=== PATIENT | female | born 1985 | race African-American/Black ===

== ENCOUNTER 2021-03-07 11:32 | Inpatient (IN) ==
[2021-03-07] MEDS ORDERED: SODIUM CHLORIDE 0.9% 1,000 ML IV STA (14:40)
[2021-03-07] MEDS ORDERED: PIPERACILLIN/TAZOBACTAM 3,375 MG in SODIUM CHLORIDE 0.9% 100 ML IV STA (14:40)
[2021-03-07] MEDS ORDERED: PANTOPRAZOLE 40 MG VIAL IV STA (14:40)
[2021-03-07 15:42] LABS: Basophils % 0.2 % (0.0-0.8); Eosinophils % 0.1 % (0.00-10.9); Hematocrit 29.4 VOL% (35.7-47.0); Hemoglobin 8.7 GM/DL (12.0-16.0); Immature Granulocytes % 0.9 %; Immature Granulocytes Absolute 0.15 #; Lymphocytes # 1.6 10*3/uL (1.4-4.0); Lymphocytes % 9.3 % (21.3-54.2); Mean Corpuscular HGB Conc 29.6 GM/DL (32-36); Mean Corpuscular Volume 87.2 FL (87-102); Mean Platelet Volume 12.5 FL (9.6-12.0); Monocytes % 6.5 % (1.7-12.7); Platelet Count 305 T/CUMM (130-400); Red Blood Count 3.37 MC/CUMM (3.8-5.5); Red Cell Distribution Width 14.8 % (9.3-17.3); White Blood Count 16.7 T/CUMM (4-12)
[2021-03-07] MEDS ORDERED: VANCOMYCIN INJ 1,000 MG in SODIUM CHLORIDE 0.9% 250 ML IV STA (15:53)
[2021-03-07 16:07] LABS: Alanine Aminotransferase 18 U/L (13-56); Albumin 2.5 G/DL (3.4-5.0); Alkaline Phosphatase 186 U/L (45-117); Aspartate Amino Transferase 17 U/L (0-37); Bilirubin,Total < 0.39 MG/DL (0.2-1.0); Blood Urea Nitrogen 6 MG/DL (7-18); Calcium 9.4 MG/DL (8.5-10.1); Carbon Dioxide 28 MMOL/L (21-32); Estimated Glom Filtration Rate 136 ML/MIN; Glucose 165 MG/DL (74-106); Osmolality,Calculated 271.1 MOS/KG (273-304); Potassium 4.1 MMOL/L (3.5-5.1); Sodium 135 MMOL/L (136-145); Total Protein 8.9 G/DL (6.4-8.2)
[2021-03-07] MEDS ORDERED: ACETAMINOPHEN 325 MG TABLET PO PRN (16:08)
[2021-03-07] MEDS ORDERED: ALBUTEROL/IPRATROPIUM 3 ML NEB RESP TX PRN (16:08)
[2021-03-07] MEDS ORDERED: BISACODYL 5 MG TABLET PO PRN (16:08)
[2021-03-07] MEDS ORDERED: GLUCAGON 1 MG VIAL IM PRN ×2 (16:10→19:55)
[2021-03-07] MEDS ORDERED: DEXTROSE 50% 25 GM/50 ML VIAL IV PRN ×2 (16:10→19:55)
[2021-03-07] MEDS ORDERED: VANCOMYCIN 1,000 MG VIAL ONE (16:15)
[2021-03-07] MEDS ORDERED: VANCOMYCIN INJ 1,000 MG in SODIUM CHLORIDE 0.9% 250 ML IV SCH (16:30)
[2021-03-07] MEDS ORDERED: ONDANSETRON 4 MG/2 ML VIAL ONE (16:43)
[2021-03-07] MEDS ORDERED: LIDOCAINE 2% 5 ML VIAL ONE (16:43)
[2021-03-07] MEDS ORDERED: SUCCINYLCHOLINE 200 MG/10 ML VIAL ONE (16:43)
[2021-03-07] MEDS ORDERED: propofoL 200 MG/20 ML VIAL IV ONE (16:43)
[2021-03-07] MEDS ORDERED: DEXMEDETOMIDINE 200 MCG/2 ML VIAL ONE (16:43)
[2021-03-07] MEDS ORDERED: PHENYLEPHRINE 1 MG/10 ML SYRINGE IV ONE (17:20)
[2021-03-07] MEDS ORDERED: SEVOFLURANE 1 UNIT/15 MINUTE INH ONE (17:39)
[2021-03-08] MEDS: PIPERACILLIN/TAZOBACTAM 3,375 MG in SODIUM CHLORIDE 0.9% 100 ML IV SCH ×4 (00:03→18:32)
[2021-03-08] MEDS: LACTATED RINGERS 1,000 ML IV SCH (00:03)
[2021-03-08] MEDS: INSULIN LISPRO 100 UNIT/ML SUBCUT SCH ×4 (03:31→17:10)
[2021-03-08] MEDS: VANCOMYCIN INJ 1,000 MG in SODIUM CHLORIDE 0.9% 250 ML IV SCH ×2 (04:28→17:10)
[2021-03-08 05:45] LABS: Basophils % 0.1 % (0.0-0.8); Eosinophils % 0.2 % (0.00-10.9); Hematocrit 23.4 VOL% (35.7-47.0); Hemoglobin 7.1 GM/DL (12.0-16.0); Immature Granulocytes % 0.8 %; Immature Granulocytes Absolute 0.09 #; Lymphocytes # 1.4 10*3/uL (1.4-4.0); Lymphocytes % 12.7 % (21.3-54.2); Mean Corpuscular HGB Conc 30.3 GM/DL (32-36); Mean Corpuscular Volume 86.3 FL (87-102); Mean Platelet Volume 10.5 FL (9.6-12.0); Monocytes % 7.1 % (1.7-12.7); Neutrophils % 79.1 % (38.7-73.9); Platelet Count 319 T/CUMM (130-400); Red Blood Count 2.71 MC/CUMM (3.8-5.5); White Blood Count 10.8 T/CUMM (4-12)
[2021-03-08 05:59] LABS: Calcium 8.4 MG/DL (8.5-10.1); Osmolality,Calculated 285.7 MOS/KG (273-304); Potassium 4.1 MMOL/L (3.5-5.1)
[2021-03-08] MEDS: PANTOPRAZOLE 40 MG TABLET PO SCH (08:24)
[2021-03-08] MEDS: lisinopriL 10 MG TABLET PO SCH (11:17)
[2021-03-08] MEDS: HYDROmorphone 2 MG/1 ML VIAL IV PRN ×2 (13:13→22:53)
[2021-03-08] MEDS: SODIUM HYPOCHLORITE 0.25% IRRIG 473 ML BOTTLE TOP SCH (13:30)
[2021-03-09] MEDS: PIPERACILLIN/TAZOBACTAM 3,375 MG in SODIUM CHLORIDE 0.9% 100 ML IV SCH ×4 (00:37→18:03)
[2021-03-09] MEDS: LACTATED RINGERS 1,000 ML IV SCH ×2 (00:38→22:50)
[2021-03-09] MEDS: VANCOMYCIN INJ 1,000 MG in SODIUM CHLORIDE 0.9% 250 ML IV SCH ×2 (04:12→16:28)
[2021-03-09] MEDS: ONDANSETRON 4 MG/2 ML VIAL IV PRN ×2 (04:26→18:09)
[2021-03-09 04:54] LABS: Basophils % 0.2 % (0.0-0.8); Eosinophils # 0.1 10*3/uL (0.0-0.87); Eosinophils % 0.5 % (0.00-10.9); Hematocrit 26.2 VOL% (35.7-47.0); Hemoglobin 7.8 GM/DL (12.0-16.0); Immature Granulocytes % 0.7 %; Immature Granulocytes Absolute 0.07 #; Lymphocytes # 1.1 10*3/uL (1.4-4.0); Lymphocytes % 10.6 % (21.3-54.2); Mean Corpuscular HGB Conc 29.8 GM/DL (32-36); Mean Corpuscular Volume 87.3 FL (87-102); Monocytes % 9.5 % (1.7-12.7); Neutrophils % 78.5 % (38.7-73.9); Platelet Count 416 T/CUMM (130-400); Red Cell Distribution Width 15.1 % (9.3-17.3); White Blood Count 10.5 T/CUMM (4-12)
[2021-03-09 05:08] LABS: Calcium 8.8 MG/DL (8.5-10.1); Osmolality,Calculated 293.5 MOS/KG (273-304); Potassium 4.3 MMOL/L (3.5-5.1)
[2021-03-09 05:57] LABS: Platelet Estimate Normal
[2021-03-09 05:58] LABS: Anisocytosis 1+; Macrocytosis Slight
[2021-03-09] MEDS: SODIUM HYPOCHLORITE 0.25% IRRIG 473 ML BOTTLE TOP SCH (07:50)
[2021-03-09] MEDS: INSULIN LISPRO 100 UNIT/ML SUBCUT SCH ×3 (07:56→17:57)
[2021-03-09] MEDS: lisinopriL 10 MG TABLET PO SCH (09:44)
[2021-03-09] MEDS: PANTOPRAZOLE 40 MG TABLET PO SCH (09:44)
[2021-03-09] MEDS: INSULIN GLARGINE 100 UNIT/ML SUBCUT SCH (15:43)
[2021-03-10] MEDS: ONDANSETRON 4 MG/2 ML VIAL IV PRN ×3 (00:03→17:58)
[2021-03-10] MEDS ORDERED: VANCOMYCIN INJ 1,250 MG in SODIUM CHLORIDE 0.9% 250 ML IV SCH (04:30)
[2021-03-10] MEDS: LACTATED RINGERS 1,000 ML IV SCH ×3 (07:14→08:30)
[2021-03-10] MEDS: INSULIN LISPRO 100 UNIT/ML SUBCUT SCH ×3 (08:25→16:09)
[2021-03-10] MEDS: INSULIN GLARGINE 100 UNIT/ML SUBCUT SCH (08:26)
[2021-03-10] MEDS: PIPERACILLIN/TAZOBACTAM 3,375 MG in SODIUM CHLORIDE 0.9% 100 ML IV SCH ×2 (08:27)
[2021-03-10] MEDS: lisinopriL 10 MG TABLET PO SCH (08:27)
[2021-03-10] MEDS: PANTOPRAZOLE 40 MG TABLET PO SCH (08:27)
[2021-03-10] MEDS: SODIUM HYPOCHLORITE 0.25% IRRIG 473 ML BOTTLE TOP SCH (08:32)
[2021-03-10] MEDS: SULFAMETHOX/TRIMETHOPRIM 800-160 MG TABLET PO SCH ×2 (12:31→20:42)
[2021-03-11 04:38] LABS: Basophils % 0.1 % (0.0-0.8); Eosinophils % 0.1 % (0.00-10.9); Hematocrit 24.5 VOL% (35.7-47.0); Hemoglobin 7.4 GM/DL (12.0-16.0); Immature Granulocytes % 0.7 %; Immature Granulocytes Absolute 0.06 #; Lymphocytes # 1.1 10*3/uL (1.4-4.0); Lymphocytes % 12.8 % (21.3-54.2); Mean Corpuscular HGB Conc 30.2 GM/DL (32-36); Mean Corpuscular Volume 84.2 FL (87-102); Mean Platelet Volume 10.4 FL (9.6-12.0); Monocytes % 6.9 % (1.7-12.7); Neutrophils % 79.4 % (38.7-73.9); Platelet Count 416 T/CUMM (130-400); Red Blood Count 2.91 MC/CUMM (3.8-5.5); Red Cell Distribution Width 15.1 % (9.3-17.3); White Blood Count 8.3 T/CUMM (4-12)
[2021-03-11 04:55] LABS: Calcium 8.5 MG/DL (8.5-10.1); Osmolality,Calculated 295.1 MOS/KG (273-304); Potassium 3.7 MMOL/L (3.5-5.1)
[2021-03-11] MEDS: ONDANSETRON 4 MG/2 ML VIAL IV PRN ×3 (04:59→20:55)
[2021-03-11] MEDS: INSULIN GLARGINE 100 UNIT/ML SUBCUT SCH (08:41)
[2021-03-11] MEDS: INSULIN LISPRO 100 UNIT/ML SUBCUT SCH ×3 (08:41→16:28)
[2021-03-11] MEDS: SODIUM HYPOCHLORITE 0.25% IRRIG 473 ML BOTTLE TOP SCH (10:00)
[2021-03-11] MEDS: lisinopriL 10 MG TABLET PO SCH (11:51)
[2021-03-11] MEDS: PANTOPRAZOLE 40 MG TABLET PO SCH (11:52)
[2021-03-11] MEDS: SULFAMETHOX/TRIMETHOPRIM 800-160 MG TABLET PO SCH (12:13)
[2021-03-11] MEDS: CLINDAMYCIN 300 MG CAPSULE PO SCH ×2 (13:51→22:05)
[2021-03-12] MEDS: CLINDAMYCIN 300 MG CAPSULE PO SCH (06:32)
[2021-03-12] MEDS: SODIUM HYPOCHLORITE 0.25% IRRIG 473 ML BOTTLE TOP SCH (08:50)
[2021-03-12] MEDS: PANTOPRAZOLE 40 MG TABLET PO SCH (09:40)
[2021-03-12] MEDS: INSULIN GLARGINE 100 UNIT/ML SUBCUT SCH (09:40)
[2021-03-12] MEDS: INSULIN LISPRO 100 UNIT/ML SUBCUT SCH ×2 (09:40→11:52)
[2021-03-12] MEDS: lisinopriL 10 MG TABLET PO SCH (09:40)
[2021-03-12 12:08] VITALS: BP 150/84
== END 2021-03-12 14:44 | disposition home or self-care (01) | DRG 264 ==
LOC: N.ED 11:32 → N.EDINP 16:08 → N.3E 19:18
PROVIDERS: ADMIT Surgery; ATTEND Surgery